=== PATIENT | female | born 1940 | race Caucasian/White ===

== ENCOUNTER → 2017-11-28 | Outpatient (CLI) | payer OTHER | LOC: CIMAGING 10:42 | PROVIDERS: ATTEND Internal Medicine | DX: M79.671 Pain in right foot (principal); Z98.890 Other specified postprocedural states | CPT/HCPCS: 73630-PO ==

== ENCOUNTER 2018-06-08 13:40 | Inpatient (IN) | payer OTHER ==
[2018-06-08] MEDS ORDERED: ACETAMINOPHEN 325 MG TAB PO PRN (15:32)
[2018-06-08] MEDS ORDERED: ONDANSETRON DISINTEGRATING 4 MG TAB PO PRN (15:32)
[2018-06-08] MEDS ORDERED: ONDANSETRON 4 MG/2 ML VIAL IVP PRN (15:32)
[2018-06-08] MEDS ORDERED: IOPAMIDOL (ISOVUE 370) 100 ML BTL IV ONE ×2 (15:48→20:49)
--- NOTE | 2018-06-08 16:40 | GHP ---
[f rep st] HISTORY AND PHYSICAL DATE OF ADMISSION: 06/08/2018 A 77-year-old female with history of breast cancer and hypertension, who presents to the hospital at the behest of her primary care physician with a constellation of symptoms, it sounds like she is havi ng increasing exertional intolerance with diaphoresis. It is not clear if there is chest pain. She has had stress test in the past but none for quite some years. She does not have a known history of coronary disease. Risk factors are hypertension and probable hyperlipidemia. She has had occasional ankle swelling, bu t no significant lower extremity edema. No orthopnea. She has not had palpitations. She also describes a situation where her left eye becomes brown out and loses vision. This has happe elliot about 4 or 5 times or perhaps more since February. She also had a bruise of uncertain etiology o emma her left evangelical and when I palpate her left evangelical, it is modestly tender. She has not had an arm, leg, or facial numbness or weakness. No slurred speech. Each time these symptoms happen, they do resolve. No fever, chills, cough, sputum, nausea, vomiting, diarrhea. REVIEW OF SYSTEMS: A complete 10-point review of systems conducted and negative except as noted in t he HPI. PAST MEDICAL HISTORY: 1. Breast cancer status post mastectomy with implants. 2. Hypertension. 3. Hypothyroidism. 4. Reflux. 5. Hypercholesterolemia. ALLERGIES: 1. Tylenol. 2. Adhesive. 3. Sulfa. MEDICATIONS: 1. Vitamin C. 2. Vitamin D. 3. Folate. 4. Folic acid. 5. Lansoprazole. 6. Levothyroxine. 7. Losartan. 8. Metoprolol. 9. Fish oil. 10. Pregabalin. 11. Simvastatin. 12. Tramadol. SOCIAL HISTORY: She lives in [place]. No alcohol. Three pack-year smoking history. FAMILY HISTORY: Parents . PHYSICAL EXAMINATION: VITAL SIGNS: Temp 36.7, blood pressure 163/86, pulse 61, breathing 18 times a minute, 96% on room air. GENERAL: No acute distress. Sclerae anicteric. Oropharynx clear. Mucou s membranes are moist. There is perhaps some tenderness without rash over her left evangelical. I can fe el her left temporal artery. NECK: Supple without lymphadenopathy or JVD. LUNGS: Clear to auscult ation bilaterally. HEART: S1, S2. ABDOMEN: Soft, nontender, nondistended. LOWER EXTREMITIES: Wi thout edema. Calves are nontender. SKIN: Without rash. NEUROLOGIC: Nonfocal. I reviewed her previous hospital record. I discussed the case with Dr. Marianela Izaguirre. ASSESSMENT/PLAN: A 77-year-old female with possible anginal symptoms as well as possible amaurosis f ugax. 1. Amaurosis fugax. This is somewhat of a convincing history. I have ordered a CT head and neck an d give her an aspirin now. Check an echocardiogram, lipid panel and a hemoglobin A1c. Neurology rosario l see her. I have also considered temporal arteritis, although I do not really think this fits. I w ill check a sedimentation rate. 2. Unstable angina. I have ordered an EKG and a troponin now, as well as an echocardiogram. She wi ll be seen by Cardiology. 3. Hypertension. I will continue her medicines. 4. Hyperlipidemia. I will check a lipid panel in the morning. DISPOSITION: Inpatient status PCU. FULL CODE. /[id number]/MODL
--- NOTE | 2018-06-08 17:11 | PDMN ---
Medical Necessity Medical necessity: Pt meets IP criteria per & MCG M-40; est los >2 mn for eval/tx of unstable angina & possible amaurosis fugax; admit for further workup/ monitoring & Neuro/Cardiology consults; comorbid advanced age; per H&P & order
[2018-06-08] MEDS ORDERED: NITROGLYCERIN 0.4 MG BTL SL PRN (18:10)
[2018-06-08] MEDS ORDERED: TEMAZEPAM 15 MG CAP PO PRN (18:10)
[2018-06-08] MEDS: ASPIRIN 81 MG CHEWABLE TAB PO SCH (18:11)
--- NOTE | 2018-06-08 18:28 | CPEKG ---
Test Reason : OPEN Blood Pressure : / mmHG Vent. Rate : 065 BPM Atrial Rate : 066 BPM P-R Int : 171 ms QRS Dur : 087 ms QT Int : 423 ms P-R-T Axes : 064 055 123 degrees QTc Int : 440 ms Sinus rhythm Abnormal T, consider ischemia, anterolateral leads Confirmed by Roger Ayers ([id number]) on 06/08/2018 6:27:51 PM Referred By: Celsa Izaguirre Confirmed By:Roger Ayers
[2018-06-08] MEDS: traMADol 50 MG TAB PO SCH (20:10)
[2018-06-08] MEDS: METOPROLOL TARTRATE 25 MG TAB PO SCH (20:12)
[2018-06-08] MEDS: PANTOPRAZOLE SODIUM 40 MG TAB PO SCH (20:13)
[2018-06-09 05:55] LABS: PLATELET COUNT 146 10^3/uL (150-400)
[2018-06-09] MEDS ORDERED: NS 1,000 ML IV ONE (06:00)
[2018-06-09] MEDS ORDERED: diphenhydrAMINE 25 MG CAP PO ONE (06:00)
[2018-06-09] MEDS ORDERED: FAMOTIDINE 20 MG TAB PO ONE (06:00)
[2018-06-09] MEDS ORDERED: DIAZEPAM 5 MG TAB PO ONE (06:00)
[2018-06-09 06:08] LABS: INR 1.04 (0.83-1.16); PROTIME(PATIENT) 13.2 SEC (12.0-15.0)
[2018-06-09] MEDS: LEVOTHYROXINE 25 MCG TAB PO SCH (06:24)
[2018-06-09] MEDS ORDERED: PREGABALIN 50 MG CAP PO SCH (09:00)
--- NOTE | 2018-06-09 10:23 | GCON ---
[f rep st] CONSULTATION CARDIAC CONSULTATION DATE OF CONSULTATION: 06/09/2018 CHIEF COMPLAINT: Intermittent left eye "brownness" with a history of exertional dyspnea worsening ov er the last 2 years. HISTORY OF PRESENT ILLNESS: The patient is a very pleasant 77-year-old female who has 2 problems. T he 1st being more concerning to her is an intermittent left eye "brown out". She was seen by Ruben cruz with no pathology, at least as which she describes to me. She also has no history of fever, c hills, night sweats, or other issues. She also was seen by her primary care, Dr Izaguirre yesterday compl aining of some diaphoresis intermittently. She does walk a dog daily. At times she gets short of br eath after walking up a hill. However, she claims that this has been a somewhat chronic process. Panchito wynn has no fever, chills, night sweats. She came to the emergency room yesterday and had a negative CT of her head and neck. She is undergoing an echocardiogram at this time. While it was going, she perez d normal LV function. Her valves appeared normal with just mild AI and MR. Formal reading is pendmarixa g. There is no pericardial effusion. In speaking to her she feels well. Her cardiac enzymes have b een negative. She has had cardiac testing in the remote. Past. She has no known history of known co ronary artery disease. Her had coronary artery disease. She understands treadmills and cath eterizations. I had a long discussion with her regarding the options of a noninvasive versus invasiv e workup. At this point she would like to progress with nuclear stress testing 1st. If abnormal, ca rdiac catheterization will be considered. Dr. Ayers will be coming to see her shortly to re-discuss the options with her as well. But in speaking to her now, she is comfortable, stable. She is not h aving any ongoing neurologic symptomatology. She has had no history of strokes or other issues. Her LDL 70. REVIEW OF SYSTEMS: Complete 10-point negative except for that noted in the HPI. PAST MEDICAL HISTORY: Includes breast cancer, hypertension, hypothyroidism. ALLERGIES: Tylenol, sulfa, adhesives. MEDICATIONS: Outpatient: Multivitamins, metoprolol, simvastatin. SOCIAL HISTORY: She lives in [place]. She has no alcohol or abuse issues. She is essentially a n onsmoker. EXAM: VITAL SIGNS: Blood pressure is 120/70, pulse rate is in the 60s, regular. GENERAL: She is a n elderly female who is alert and oriented without complaints, resting comfortably in bed. HEENT: N egative. LUNGS: Clear. CARDIOVASCULAR: Regular rate and rhythm without significant murmurs, key ps, rubs. ABDOMEN: Soft, nontender. MUSCULOSKELETAL: Without cyanosis, clubbing, edema. MOUTH: Oropharynx was moist. LABORATORY DATA: White count of 4, hemoglobin of 14, potassium 4.3, creatinine 1.0. Troponin is neg ative. ASSESSMENT: 1. Dyspnea on exertion, which seems to be more of a chronic situation. Patient with no known histor y of coronary disease. She denies any chest pain or syncope. She has been admitted and myocardial i nfarction is ruled out. Echocardiogram shows no ischemic wall motion abnormalities. Further ischemi c testing is needed. Whether this is a noninvasive nuclear stress test versus cardiac catheterizatio n is yet to be decided. In speaking to her at this time, she would like to progress with nuclear str ess testing 1st, if abnormal would go with catheterization. However, Dr. Ayers will be coming short ly who knows her from outpatient setting and further discuss her options with her. She has been n.p. o. so either option is available. 2. Left eye brown out, unclear significance. No source of emboli noted at this time. Further pollo p depending by the hospitalist. She has no ongoing neurologic symptomatology. Copy requested to: /[id number]/MODL
--- NOTE | 2018-06-09 11:23 | ECHO ---
[email or web address] [address] Main: [phone] Echocardiography Examination Transthoracic Name: GIL JONES MR#: [id number] Study Date: 06/09/2018 Study Time: 09:18 AM Date of : 1940 Age: 77 year(s) Height: 167.6 cm (66 in.) Weight: 81.65 kg (180 lb.) BSA: 1.91 m2 Gender: Female Examination: Echo Contrast: Image Quality: Good Rhythm: Normal sinus rhythm Heart Rate: 63 bpm BP: 130 mmHg/70 mmHg Indication: CP Procedure Staff Referring Physician: Business Services Director: Don Cheema RDCS Reading Physician: Bladimir Zamora MD Requesting Provider: Indication: CP Measurements Chambers AV/MV Label Value Normal Value Label Value Normal Value EF lower range (%) 70 % AR Defect Area (ERO) 0.12 cm2 EF upper range (%) 75 % AR PHT 0.68 s IVSd, 2D 0.9 cm (0.6cm - 1.1cm) AR PHT 675 ms LVDd, 2D 4.5 cm (3.9cm - 5.3cm) AR PISA Radius 0.5 cm LVDs, 2D 2.6 cm (2.1cm - 4cm) AR Reg. Fraction 56 % LVEF, 2D 74 % (54% - 74%) AR Reg. Volume 23 ml LVOT PGmax 2 mmHg AR Vena contracta 0.4 cm LVOT PGmean 1 mmHg AR Vmax 4.06 m/s LVOT Vmax 0.62 m/s (0.7m/s - 1.1m/s) AR VTI 189 cm LVOT Vmean 0.42 m/s AV PGmax 4 mmHg LVOTd 1.9 cm (1.8cm - 2cm) AV PGmean 2 mmHg LVPWd, 2D 1 cm AV Vmax 1 m/s RVDd, 2D 1.7 cm (1.9cm - 3.8cm) SUDHA (continuity eq. 1.8 cm2 LA Area, A2C 13.3 cm2 (0cm2 - 20cm2) Vmax) LA Volume, A2C 36 ml (22ml - 52ml) SUDHA D (continuity eq. 1.6 cm2 LA Volume, A4C 45 ml (22ml - 52ml) VTI) LA Volume, BP 44 ml (22ml - 52ml) MV A Vmax 0.88 m/s LAESV index, BP 23 ml/m2 MV E' lateral 0.06 m/s RA Area 10.6 cm2 MV E' mean 0.05 m/s Additional Vessels MV E' septal 0.04 m/s Patient: GIL OJNES Study Date: 06/09/2018 Page 1 of 3 09:18 AM Label Value Normal Value MV E Vmax 0.64 m/s AoRoot, MM 2.5 cm (2.2cm - 3.7cm) MV E/A 0.73 MV E/E' lateral 11.3 MV E/E' mean 12.8 MV E/E' septal 17.2 (0.45 - 1.25) TV/PV Label Value Normal Value PV PGmax 3 mmHg PV Vmax, Caliper 0.88 m/s (0.6m/s - 0.9m/s) Conclusions Left Ventricle: Left ventricle is normal in size. EF range is estimated at 70 % - 75 %. There are no regional wall motion abnormalities. Right Ventricle: Normal size right ventricle. Mitral Valve: Trivial mitral regurgitation. Aortic Valve: Mild to moderate aortic regurgitation is present. The aortic valve is trileaflet. Pericardium: No pericardial effusion. Overall Conclusions: There is no previous echocardiogram for comparison. Findings Left Ventricle: Left ventricle is normal in size. Normal global systolic left ventricular function. The ejection fraction, measured by 2D, is 74 %. EF range is estimated at 70 % - 75 %. The LV wall thickness is at the upper limits of normal. There are no regional wall motion abnormalities. Left ventricular diastolic function parameters are normal. Right Ventricle: Normal size right ventricle. Right ventricular systolic function is normal. Left Atrium: The left atrium is normal in size. Left Atrium Measurements LAESV index, BP is 23.0 ml/m2. Right Atrium: The right atrium is normal in size. Right Atrium Measurements RA Area is 10.6 cm2. Mitral Valve: Mitral valve appears structurally normal. Trivial mitral regurgitation. No mitral valve stenosis. There is mild mitral calcification. Aortic Valve: Patient: GIL JONES Study Date: 06/09/2018 Page 2 of 3 09:18 AM Mild to moderate aortic regurgitation is present. There is no aortic stenosis. Aortic leaflets exhibit mild calcification. The aortic valve is trileaflet. Tricuspid Valve: No significant tricuspid regurgitation. Pulmonic Valve: Pulmonic leaflets are structurally normal. No pulmonic valve regurgitation is evident. Aorta: The aorta is normal. The aortic root size in M-mode measures 2.5 cm. Aorta Measurements AoRoot, MM is 2.5 cm. Pericardium: No pericardial effusion. Exam Details Procedure Ordered: Echo Procedure Status: Routine study Image Quality: Good Facility Location: Cardiac Echo 1 (No Signature Object) Patient: GIL JONES Study Date: 06/09/2018 Page 3 of 3 09:18 AM [id number]
[2018-06-09] MEDS ORDERED: MIDAZOLAM 2 MG/2 ML VIAL ONE (15:07)
[2018-06-09] MEDS ORDERED: LIDOCAINE 1% 300 MG/30 ML SDV ONE (15:07)
[2018-06-09] MEDS ORDERED: fentaNYL 100 MCG/2 ML INJ ONE (15:07)
[2018-06-09] MEDS ORDERED: HEPARIN 10,000 UNIT/10 ML MDV (1,000 UNIT/ML) ONE (15:08)
[2018-06-09] MEDS ORDERED: VERAPAMIL 5 MG/2 ML VIAL ONE (15:08)
[2018-06-09] MEDS ORDERED: IOPAMIDOL (ISOVUE-370) 150 ML BTL IV ONE (15:08)
--- NOTE | 2018-06-09 15:23 | HOSPPROG ---
Hospitalist Progress Note Assessment/Plan: 77 yo F with hx of breast CA and HTN presenting with intermittent monocular vision loss as well as SONG and diaphoresis concerning for unstable angina # unstable angina: cardiology consulted and plans for cardiac cath today, labs reviewed and troponin negative, ecg with abnormal t waves but not clearly ischemic. Will f/u cath results # transient monocular vision loss: patient with sxs intermittently that last only several seconds and are presentin only in the left eye, checking esr/crp in case this could be related to temporal arteritis, will request neurology to evaluate in the am for further evaluation # breast cancer: s/p bilateral mastectomy, f/u with oncology # htn: BP has been largely on the low end on her home medications of losartan and metoprolol, will continue to monitor as BP now increasing however may require decrease in bp meds # HLD: continue statin # IP status Patient new to my care. Old records reveiwed and summarized as above. Care plan reviewed with cardiology, further hx obtaiend from patients daughter present at bedside Subjective: no acute overnight events, patient denies chest pain or recurrent vision issues Objective: Vital Signs Temp Pulse Resp BP Pulse Ox 36.8 C 67 20 119/60 93 06/09/18 12:00 06/09/18 12:00 06/09/18 12:00 06/09/18 12:00 06/09/18 12:00 Laboratory Results 06/09/18 05:36 06/09/18 05:36 06/08/18 06/09/18 06/10/18 05:59 05:59 05:59 Intake Total 1250 Output Total 501 Balance 749 PT 13.2 SEC (12.0-15.0) 06/09/18 05:36 INR 1.04 (0.83-1.16) 06/09/18 05:36 awake alert anicteric op clear rrr no mrg cta soft nt nd no cce warm dry well perfused oriented appropriate ICD10 Worksheet Patient Problems: Problems Problem Status Onset Neoplasm of breast, female, malignant Acute Acquired breast deformity Acute
[2018-06-09] MEDS: traMADol 50 MG TAB PO SCH ×2 (15:56→20:31)
[2018-06-09] MEDS: CHOLECALCIFEROL VIT D3 1,000 UNITS TAB PO SCH (15:58)
[2018-06-09] MEDS: LOSARTAN POTASSIUM 50 MG TAB PO SCH (15:58)
[2018-06-09] MEDS: METOPROLOL TARTRATE 25 MG TAB PO SCH ×2 (15:58→20:32)
[2018-06-09] MEDS: CALCIUM CARB W/VIT D 500 MG TAB PO SCH (15:58)
[2018-06-09] MEDS: FOLIC ACID 1 MG TAB PO SCH (15:58)
[2018-06-09] MEDS: ASCORBIC ACID 500 MG TAB PO SCH (15:58)
[2018-06-09] MEDS: OMEGA-3 FATTY ACIDS 1,000 MG CAP PO SCH (15:58)
[2018-06-09] MEDS: ASPIRIN 81 MG CHEWABLE TAB PO SCH (15:59)
[2018-06-09] MEDS ORDERED: NITROGLYCERIN 1,500 MCG/15 ML VIAL MISC ONE (16:18)
[2018-06-09] MEDS ORDERED: ATROPINE SULFATE 1 MG/10 ML SYR IVP PRN (16:28)
--- NOTE | 2018-06-09 17:12 | ASMTCMCOM ---
CM Note CM Note Notes: Pt admitted to ICU at PCP request, dc needs unknow, Cardioloy consult requested. DC Plan: TBD Date Signed: 06/09/2018 05:12 PM Electronically Signed By:Kenyetta Capps RN
[2018-06-09] MEDS: PANTOPRAZOLE SODIUM 40 MG TAB PO SCH (20:31)
[2018-06-09] MEDS: PREGABALIN 75 MG CAP PO SCH (20:31)
[2018-06-09] MEDS ORDERED: PRAVASTATIN SODIUM 20 MG TAB PO SCH (21:00)
[2018-06-10] MEDS: LEVOTHYROXINE 25 MCG TAB PO SCH (05:38)
[2018-06-10 05:54] LABS: PLATELET COUNT 165 10^3/uL (150-400)
--- NOTE | 2018-06-10 06:29 | CPIP ---
[f rep st] INVASIVE CARDIAC PROCEDURE DATE OF PROCEDURE: 06/09/2018 PROCEDURE PERFORMED: 1. Selective cholangiography. 2. Left heart catheterization. 3. Left ventriculogram. 4. TR band arteriotomy repair. COMPLICATIONS: None. PROCEDURE IN DETAIL: After informed consent was obtained, n.p.o. status was confirmed. The region o f the right wrist was cleaned, prepped, and draped in sterile fashion. Approximately 3 cc of 1% lido kourtney was utilized for local anesthesia. A 5-Andorran sheath was placed in the right radial artery usi ng a single entry puncture of the vessel. The patient did have a preoperative plethysmography trace assisted Dougie test documenting dual arterial supply to the right index finger. The patient underwent the previously mentioned diagnostic procedure with use of JL4 and R4 curved cor onary catheters, as well as a 5-Andorran pigtail catheter. Standard wire exchange technique was utiliz ed for all catheter exchanges. The right coronary artery was 3 mm in size and dominant, giving rise to posterior descending as well as the posterolateral ventricular branch. No flow-limiting obstruction of the vessel was identified. The left main coronary lumen was approximately 4 mm in size and bifurcates into an LAD and circumfl ex system. The LAD diagonal system is small consistent with the patient's age and female gender. Th ere is no evidence of flow-limiting obstruction, dissection, or thrombus. I do not see a calcified p laque on cine angiography of the vessel. The circumflex gives rise to 2 important obtuse marginal br anches and the vessel is approximately 2.5 mm in size at its takeoff from the left main. There is no evidence of flow-limiting obstruction, dissection, or thrombus in this vessel, and JUNI-3 flow is pr esent throughout the coronary circulation. The patient underwent left heart catheterization demonstr ating normal left ventricular end-diastolic pressure measured 8 mmHg. The patient underwent left jose luis triculogram in the DURAND projection, demonstrating preserved and hypercontractile left ventricular syst olic function. Ejection fraction is greater than 75% without evidence of significant mitral regurgit ation, and there is no evidence of aortic stenosis upon pullback across aortic valve. FINAL IMPRESSION: Normal left ventricular chamber size with preserved and hypercontractile left vent ricular systolic function. Ejection fraction is normal in this patient who has been nothing by mouth for a while. The left ventricular end diastolic pressure is normal and therefore not suggestive of severe diastolic dysfunction. There is no evidence of significant coronary artery disease or obstruc tion, and therefore the patient would be best managed medically for her exertional shortness of breat h. Other causes of that problem could be considered including deconditioning. The patient is in the hospital for amaurosis fugax as well. The evaluation with CT angiogram of her head and neck vessels does not reveal obstruction, dissection, ulceration, or significant plaque formation per the radiolo gy reports, and the patient ESR is 2 mm an hour which, of course, is normal and the highly sensitive CRP was also found to be normal as well, which would be inconsistent with the diagnosis of temporal a rteritis as a cause for the patient's intermittent left-sided loss of vision. At the present time, I do not have an explanation for intermittent loss of vision and her shortness of breath does not appe ar to be related to significant obstructive coronary disease or elevated filling pressures of the lef t ventricle. /[id number]/MODL
[2018-06-10] MEDS: ASPIRIN 81 MG CHEWABLE TAB PO SCH (08:56)
[2018-06-10] MEDS: CALCIUM CARB W/VIT D 500 MG TAB PO SCH (08:56)
[2018-06-10] MEDS: ASCORBIC ACID 500 MG TAB PO SCH (08:56)
[2018-06-10] MEDS: CHOLECALCIFEROL VIT D3 1,000 UNITS TAB PO SCH (08:57)
[2018-06-10] MEDS: FOLIC ACID 1 MG TAB PO SCH (08:57)
[2018-06-10] MEDS: LOSARTAN POTASSIUM 50 MG TAB PO SCH (08:58)
[2018-06-10] MEDS: PREGABALIN 75 MG CAP PO SCH (09:00)
[2018-06-10] MEDS: OMEGA-3 FATTY ACIDS 1,000 MG CAP PO SCH (09:00)
[2018-06-10] MEDS: METOPROLOL TARTRATE 25 MG TAB PO SCH (09:00)
[2018-06-10] MEDS: traMADol 50 MG TAB PO SCH (09:01)
[2018-06-10 14:33] VITALS: BP 163/80
[2018-06-10] MEDS ORDERED: METOPROLOL TARTRATE 25 MG TAB PO SCH (14:38)
--- NOTE | 2018-06-10 14:38 | PDCARPN ---
Cardiology Progress Note Chief Complaint: anginal equivalent and amaurosis fugax (? Positional component?) Assessment/Plan: Assessment: 1. Abnormal EKG with ischemic changes in anterior distribution must be related to small vessel issues as cardiac cath yesterday reveals widely patent arteries without significant disease... Please see cath note for details. LV systolic function is also normal without aortic stenosis or thoracic aneurysm... Medical management is recommended. 2. Intermittent blindness of the left eye vision with "brownout" and temporary loss of vision that seems to occur after sitting at computer for long periods and then getting up. The problem gradually resolves. The vascular workup to rule out carotid disease was negative per Radiology. Temporal arteritis would be unlikely given HsCRP and low sed rate... 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 3. Orthostasis is a chronic problem for her. It might be reasonable to back off on the dose of the metoprolol and taper that to see if that helps... Plan: as above... 06/10/18 14:26 Subjective: I am feeling better Reviewed/Discussed With: family, hospitalist, multidisciplinary team Time Spent with Patient: greater than 25 minutes Time Spent with Patient: Greater than 25 minutes spent on this patients care, greater than 50% of time spent counseling, educating, and coordinating care regarding the above mentioned plan. Objective: Vital Signs (8 Hrs) Temp Pulse Resp BP Pulse Ox 06/10/18 11:57 36.9 C 54 L 13 133/67 H 90 L 06/10/18 09:00 71 06/10/18 08:58 137/73 H 06/10/18 08:00 37.1 C 15 92 Intake/Output (24 Hrs) 06/09/18 06/10/18 06/11/18 05:59 05:59 05:59 Intake Total 1250 950 Output Total 501 Balance 749 950 Intake: Oral (ml) 1250 650 IV Intake (ml) 300 Output: Urine (ml) 501 Toilet 501 Other: Weight 81.647 kg Number of Voids Toilet 1 2 Result Diagrams: 06/10/18 05:00 06/10/18 05:00 Cardiac Labs: Cardiac Lab Results (72 Hrs) 06/09/18 06/08/18 01:05 16:15 Troponin I < 0.012 < 0.012 - Physical Exam Constitutional: healthy appearing, no apparent distress Eyes: PERRL, EOMI, anicteric sclera Ears, Nose, Mouth, Throat: moist mucous membranes Cardiovascular: regular rate and rhythm Respiratory: clear to auscultate bilat Gastrointestinal: normoactive bowel sounds Neurologic: AAOx3, CN II-XII grossly intact Psychiatric: cooperative, interactive, following commands - . Pending Discharge Within 24 Hours: No Pending Discharge Within 48 Hours: No ICD10 Worksheet Patient Problems: Problems Problem Status Onset Neoplasm of breast, female, malignant Acute Acquired breast deformity Acute
--- NOTE | 2018-06-10 15:40 | PDDCSUM ---
Discharge Summary Discharge Summary: Dates of service: 06/08-06/10/18 Consultations: cardiology, neurology Procedures performed: brain MRI, heart catheterization Hospital course by problem: 77 yo F with hx of breast CA and HTN presenting with intermittent monocular vision loss as well as SONG and diaphoresis concerning for unstable angina # SONG/diaphoresis: concerning for unstable angina, cath performed showing no significant CAD # transient monocular vision loss: patient with sxs intermittently that last only several seconds and are presenting only in the left eye, ESR and CRP are both normal but still consideration for seronegative temporal arteritis. MRI normal. Query if due to small branch opthalmic artery branches with blockage or narrowing that with transient drop in blood pressure as during orthostatic hypotension episode she has 'brown out' of her vision. She has been noted to have labile BP here and her episodes have all occurred when going from sitting to standing c/w orthostasis. She will f/u with neuro-opthalmology at [facility] and cautioned that if sxs are increasing in frequency or severity she should discuss with her PCP whether to start steroids even before her f/u with neuro optho. She is amenable to that plan. Discussed with Dr. Ayers and Dr. Garcia at length. Will have her start BID aspirin per neuro recs for now # breast cancer: s/p bilateral mastectomy, f/u with oncology # htn: BP has been largely on the low end on her home medications of losartan and metoprolol here with concerns of episodes of orthostatic hypotension as above, discussed with cardiology, will decrease metoprolol to 12.5mg bid and continue losartan at same dose for now # HLD: continue statin dc home f/u with neuro-opthalmology at [facility] f/u with PCP in next week and cardiology per routine > 35 min spent in dc more than half in coordination of care
--- NOTE | 2018-06-10 15:49 | ASMTDCNOTE ---
Case Management Discharge Discharge Order Complete? Answers: Yes Patient to Obtain Answers: via Family Medications Transportation Arranged Answers: Family/Friends Discharge Comments Notes: Pt is being discharged independently with outpatient follow-up as indicated. Family is supportive. No other CM needs identified at this time. Date Signed: 06/10/2018 03:48 PM Electronically Signed By:MARIYA Pritchard
--- NOTE | 2018-06-10 15:54 | ASDISCHSUM ---
Discharge Information Plan Status:Home with No Needs Medically Cleared to Leave: Discharge Date: D/C Disposition:Home, Routine, Self-Care ADT D/C Disposition:Home, Routine, Self-Care Projected Discharge Date:06/10/2018 12:00 AM Transportation at D/C:Family Discharge Delay Reason: Follow-Up Date:06/10/2018 12:00 AM Discharge Slot: Final Diagnosis: Placement Information Patient Contact Information Contact Name:SUZAN Relationship:Daughter Address: Work Phone: City: [facility] Phone: State/[place] Code: Email: Financial Information Financial Class:Medicare Primary Plan Desc:MEDICARE OUTPATIENT Primary Plan Number:[id number] Secondary Plan Desc:OMID Secondary Plan Number:[id number] Assessment Information BC CM Progress Note CM Note CM Note Notes: Pt admitted to ICU at PCP request, dc needs unknow, Cardioloy consult requested. DC Plan: TBD Date Signed: 06/09/2018 05:12 PM Electronically Signed By:Kenyetta Capps RN Case Management Discharge Plan Note Case Management Discharge Discharge Order Complete? Answers: Yes Patient to Obtain Answers: via Family Medications Transportation Arranged Answers: Family/Friends Discharge Comments Notes: Pt is being discharged independently with outpatient follow-up as indicated. Family is supportive. No other CM needs identified at this time. Date Signed: 06/10/2018 03:48 PM Electronically Signed By:MARIYA Pritchard Intervention Information Intervention Type:*Incorrect Registration Date of Service:06/08/2018 04:35 PM Patient Type:Inpatient Staff Member:TEE Hoang Courtney Hours: Discipline: Severity: Comment:
--- NOTE | 2018-06-10 15:56 | ASMTLACE ---
LACE Length of stay for Answers: 2 days current admission Acuity / Level of Answers: Yes Care: Did the patient have an inpatient admission? Comorbidities - select Answers: Any tumor (including all that apply lymphoma or leukemia) Other Notes: HTN, hypothyroidism # of Emergency department Answers: 0 visits in the last 6 months Score: 8 Date Signed: 06/10/2018 03:56 PM Electronically Signed By:MARIYA Pritchard
--- NOTE | 2018-06-10 17:45 | GCON ---
[f rep st] CONSULTATION NEUROLOGY CONSULT REFERRING PHYSICIAN: Adrien Damian MD CHIEF COMPLAINT: Left monocular visual disturbance. 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 It is worse in the right eye. She also has a history of hypertension and lipids. She is status post breast cancer and mastectomy as well. She is on losartan and metoprolol in terms of blood pressure medication. She states that sometime before 2017, she noticed a left scalp bruise for which she did not remember striking her head or having any trauma. This completely resolved. Then a few weeks later she began having what sounds like unrelated episode of left monocular loss of vision. She has had 8 to 10 total since around 2017, until about a week and a half ago. They occur in the exact same scenario each time. Specifically, she will have been working at her computer and then abruptly stand up and will lose vision in her left eye for several seconds up to 15 to 30 seconds at the longest and much shorter, sometimes 3 to 5 seconds at other times. There are no associated neurologic symptoms, such as right-sided numbness, weakness, or any other focal neurologic symptoms. She sees a brown-reddish complete loss of vision if she occludes her right eye during the time she is symptomatic and then it resolves. There is no headache or migraine. She has had no taoism tenderness, jaw claudication, constitutional symptoms, unexplained muscle pain or fatigue in terms of possible giant cell arteritis. Her sedimentation rate was negative. She was told to start aspirin, which she just started last night and does not want to take a full aspirin, so she is going to take 2 baby aspirin daily. CTA of the head and neck did not show any carotid disease or any significant findings. MRI brain was done this morning and pending in terms of interpretation. I did not see any acute infarct on the diffusion-weighted images. We have not checked orthostatics in the hospital yet. Sedimentation rate and high sensitivity CRP are both negative. REVIEW OF SYSTEMS: A 10-point review was done and only pertinent to the HPI. For past medical history, social history, family history, home medications, see the History and Physical by Dr. Hoang. PHYSICAL EXAM: VITAL SIGNS: Her blood pressure has been highly variable in the hospital with systolics ranging from 160s to 95. She is afebrile at 36.9 centigrade, heart rate of 60 to 70s. GENERALLY: She is very pleasant, sharp, and lucid, but not in any acute distress. NEUROLOGICAL: Higher mental function , cognition are normal. Indeed, the patient is very lucid and following our discussion closely in terms of science and mechanisms of Neurology. On cranial nerve exam, the face is symmetric. Extraocular movements are full. Pupils are symmetric and react normally to light directly and consensually. If she occludes her right eye, she sees well out of the left eye. If she occludes her left eye, she has some decreased distance vision in the right eye, which is her baseline due to her retinal problems. Tongue is midline. Face strength and sensation are normal. She has no tenderness over the left temporal. On general motor exam she has normal power, tone, and reflexes throughout. Sensory exam normal to light touch throughout. Coordination is normal in all 4 extremities. IMPRESSION/PLAN: 1. Episodic left monocular transient vision loss. This patient's clinical history may suggest she has a small caliber vessel such as the retinal artery on the left that is sensitive to orthostatic changes and/ or the combination of bright light. This latter mechanism of bright light causing amaurosis is known as Whisnant's phenomenon. Whisnant's phenomena is unilateral vision loss in response to bright light. This occurs in the setting of carotid or retinal artery occlusive disease. The mechanism is thought to reflect an inability of borderline circulation to sustain the increased retinal metabolic activity associated with exposure to bright light. It may be that her computer screen increases her retinal metabolic demand and with the combination of orthostasis when she stands up, she is having suboptimal flow to the left retina and transient loss of vision. We discussed at length. She does not have any definitive clinical or laboratory signs or symptoms to highly suggest temporal arteritis. Her sedimentation rate is 2 and she denies any of the other classic symptoms associated with that disorder. In addition, high sensitivity CRP is negative. The combination of sed rate and CRP are fairly sensitive for temporal arteritis. Going forward, I recommend she continue baby aspirin daily. She will take a baby aspirin twice daily as she is not comfortable taking a full dose. This is reasonable. We will have her orthostatic blood pressures checked while in the hospital. If they are abnormal, I would ask Cardiology to review her medications and make suggestions to optimize and sustain her blood pressure without precipitous drops while standing. In addition, I have asked that she follow up with the [facility]. Their phone number is [phone]. She can call that number and make an appointment. They have further testing which may supplement her sanitary engineer's evaluation. If they feel a temporal artery biopsy would be indicated, certainly I would defer to their judgment, as a small percentage of individuals can have negative inflammatory markers. At this time, as noted above, her symptoms are not highly consistent with temporal arteritis. Gave her a list of symptoms such as pain in jaw claudication, if they were to develop , she will follow-up SUDHIR with her sanitary engineer for temporal artery biopsy and consideration of steroids. She was reassured on the angiography of the head and neck without carotid disease. Her MRI is pending. I did not see any diffusion-weighted abnormalities. If there is any abnormality on MRI brain, please contact the neurology service for further recommendations. Going forward, we will continue to follow this patient as needed. Please do not hesitate to call if there are any changes in her neurologic status or questions about this patient. We switch services today and Dr. Peck will take over the service tomorrow morning. Seventy total minutes floor time reviewing history, imaging; over 50% in direct counseling and coordination of care. /[id number]/MODL MTDD
--- NOTE | 2018-06-10 23:23 | CPEKG ---
Test Reason : OPEN Blood Pressure : / mmHG Vent. Rate : 055 BPM Atrial Rate : 056 BPM P-R Int : 178 ms QRS Dur : 081 ms QT Int : 441 ms P-R-T Axes : 045 041 131 degrees QTc Int : 422 ms Sinus rhythm Abnormal T, consider ischemia, anterolateral leads Confirmed by Roger Ayers [id number] on 06/10/2018 11:22:53 PM Referred By: Celsa Izaguirre Confirmed By:Roger Ayers
== END 2018-06-10 17:07 | disposition home or self-care (01) | DRG 287 ==
LOC: F2N 13:49 → OBSVTOIN 15:51
PROVIDERS: ADMIT Internal Medicine; ATTEND Internal Medicine
PROC: 4A023N7 Measurement of Cardiac Sampling and Pressure, Left Heart, Percutaneous Approach (ICD-10-PCS; principal; 2018-06-09)
PROC: B2111ZZ Fluoroscopy of Multiple Coronary Arteries using Low Osmolar Contrast (ICD-10-PCS; principal; 2018-06-09)
PROC: B2151ZZ Fluoroscopy of Left Heart using Low Osmolar Contrast (ICD-10-PCS; principal; 2018-06-09)
DX: I20.0 Unstable angina (principal); H53.129 Transient visual loss, unspecified eye; I10 Essential (primary) hypertension; E78.5 Hyperlipidemia, unspecified; Z85.3 Personal history of malignant neoplasm of breast
CPT/HCPCS: 70551-PN; 86141-90; C1769; J1644; J2250; J3010; Q9967